=== PATIENT | female | born 1955 | race Asian ===

== ENCOUNTER 2020-01-31 18:58 | Emergency (ER) | payer OTHER ==
[~2020-01-31] VITALS: Ht 152.4 cm; Wt 59.0 kg
--- NOTE | 2020-01-31 19:27 | Emergency Room Report ---
History of Present Illness General Chief Complaint: Eye Problems Present Illness HPI 64-year-old female with history of type 2 diabetes, hypertension, hyperlipidemia all controlled here for [place] visiting reporting 2 days of bilateral eye pain and yellow discharge with redness. Patient denies any chemical exposure, reports that she accidentally rubbed her eyes with her dirty hand few days ago and started noticing symptoms right after. Denies any blurry vision, photophobia, URI symptoms. Denies fever and chills at this time. Denies chest pain shortness of breath. Has used [id number] eyedrops with minimal relief. Denies any injury to the eyes. Patient History Past Medical History: see triage record Past Surgical History: none Pertinent Family History: none Now: No Immunizations: UTD Reviewed Nursing Documentation: PMH: Agreed; PSxH: Agreed Nursing Documentation-PMH Hx Hypertension: Yes - hypercholesterol Hx Diabetes: Yes Review of Systems All Other Systems: negative except mentioned in HPI Physical Exam Vital Signs Date Time Temp Pulse Resp B/P (MAP) Pulse Ox O2 Delivery O2 Flow Rate FiO2 01/31/20 19:03 98.2 93 20 143/80 (101) 96 Room Air Sp02 EP Interpretation: reviewed, normal General Appearance: no apparent distress, alert, GCS 15, non-toxic Head: normocephalic, atraumatic Eyes: bilateral eye other - Conjunctival injected and yellow discharge noted ENT: hearing grossly normal, normal pharynx, no angioedema, normal voice Neck: full range of motion, supple, no meningismus, supple/symm/no masses Respiratory: chest non-tender, lungs clear, normal breath sounds, no rhonchi, no retraction, no wheezing, speaking full sentences Cardiovascular #1: regular rate, rhythm, no edema, no murmur, normal capillary refill Gastrointestinal: normal bowel sounds, non tender, soft, non-distended, no guarding, no rebound Rectal: deferred Genitourinary: no CVA tenderness Musculoskeletal: back normal, digits/nails normal, no calf tenderness Neurologic: alert, motor strength/tone normal, oriented x3, sensory intact, responsive, speech normal Psychiatric: judgement/insight normal, memory normal, mood/affect normal, no suicidal/homicidal ideation Skin: no rash Lymphatic: no adenopathy Medical Decision Making PA Attestation All my diagnosis and treatment plans were reviewed ad discussed with my supervising physician Dr. Colón Diagnostic Impression: Primary Impression: Bacterial conjunctivitis ER Course 64-year-old female with history of type 2 diabetes, hypertension, hyperlipidemia all controlled here for [place] visiting reporting 2 days of bilateral eye pain and yellow discharge with redness. Patient denies any chemical exposure, reports that she accidentally rubbed her eyes with her dirty hand few days ago and started noticing symptoms right after. Denies any blurry vision, photophobia, URI symptoms. Denies fever and chills at this time. Denies chest pain shortness of breath. Has used [id number] eyedrops with minimal relief. Denies any injury to the eyes. Ddx considered but are not limited to: bacterial conjunctivitis, allergic conjunctivitis, viral conjunctivitis, periorbital cellulitis, global trauma Vital signs: are WNL, pt. is afebrile H&PE are most consistent with: Bacterial conjunctivitis ORDERS: Ofloxacin ophthalmic ED INTERVENTIONS: None required at this time. DISCHARGE: At this time pt. is stable for d/c to home. Will provide printed patient care instructions, and any necessary prescriptions. Care plan and follow up instructions have been discussed with the patient prior to discharge. Patient to take medication as directed, follow-up with [facility], if worsening symptoms return to the emergency room Last Vital Signs Date Time Temp Pulse Resp B/P (MAP) Pulse Ox O2 Delivery O2 Flow Rate FiO2 01/31/20 19:03 98.2 93 20 143/80 (101) 96 Room Air Disposition: HOME, SELF-CARE Condition: Stable Scripts Ofloxacin (Ofloxacin) 5 Ml Drops 2 DROP OP Q6HR for 7 Days, #10 ML apply in both eyes Prov: Veronica Parson 01/31/20 Patient Instructions: Bacterial Conjunctivitis, [id number] Additional Instructions: Use antibiotics drops as been prescribed, change your pillowcase, wear protective sunglasses, follow-up with your primary care provider, if worsening symptoms return to the emergency room Veronica Parson Jan 31, 2020 19:27
[2020-01-31] MEDS ORDERED: OFLOXACIN10 ML OP (19:28)
[2020-01-31 19:35] VITALS: BP 143/80
--- NOTE | 2020-01-31 19:35 | NUR ---
ER DISCHARGE NOTE: Patient is cleared to be discharged per ERMD, pt is aox4, on room air, with stable vital signs. pt was given dc and prescription instructions, pt was able to verbalize understanding, pt id band removed without complications. pt is able to ambulate with steady gait. pt took all belongings.
== END 2020-01-31 19:35 | disposition home or self-care (01) ==
LOC: EMR 19:25
DX: H10.9 Unspecified conjunctivitis (principal); E11.9 Type 2 diabetes mellitus without complications; I10 Essential (primary) hypertension; E78.00 Pure hypercholesterolemia, unspecified
CPT/HCPCS: 99281